=== PATIENT | male | born 1935 | race Caucasian/White ===

== ENCOUNTER 2017-12-10 20:43 | Emergency (ER) | payer MEDICARE, BC ==
[2017-12-10 20:53] VITALS: TEMP 97.1
[2017-12-10 21:06] VITALS: RESP 18
[2017-12-10 21:48] LABS: BASOPHILS % (AUTO) 1 % (0-3); EOSINOPHILS % (AUTO) 2 % (0-9); HEMATOCRIT 44 % (39-53); MEAN CORPUSCULAR HGB CONC 33.1 gm/dl (32.0-36.0); MEAN CORPUSCULAR VOLUME 91 fL (80-100); MONOCYTES % (AUTO) 12.1 % (0-12); NEUTROPHILS % (AUTO) 59.4 % (37-80)
[2017-12-10 22:01] LABS: ALBUMIN 3.2 gm/dl (3.4-5.0); ALT 43 IU/L (14-63); CALCIUM 9.2 mg/dl (8.5-10.1); GLOM FILT RATE 58 mL/min (>60); POTASSIUM 3.8 mMol/L (3.5-5.1); SODIUM 136 mMol/L (136-145)
[2017-12-10 23:15] VITALS: BP 110/66; PULSE 81; O2SAT 94
== END 2017-12-10 22:40 | disposition home or self-care (01) | DRG 204 ==
LOC: ED 20:43
DX: R06.09 Other forms of dyspnea (principal); R06.01 Orthopnea; R53.1 Weakness
CPT/HCPCS: 36415; 71045; 80053; 83880; 84484; 85025; 99283

== ENCOUNTER 2017-12-11 06:30 | Day surgery (SDC) | payer MEDICARE, BC ==
[2017-12-11] MEDS ORDERED: ACETAZOLAMIDE 250 MG PO ONE (06:38)
[2017-12-11 06:56] VITALS: O2SAT 95
[2017-12-11] MEDS: PHENYLEPHRINE HCL 10% OPHTHAL SOL ONE ×2 (07:08→07:22)
[2017-12-11] MEDS: PROPARACAINE HCL 0.5% OPHTHALMIC SOL ONE ×3 (07:08→08:06)
[2017-12-11] MEDS: KETOROLAC 0.5% OPTH 60 DROP SOL ONE ×2 (07:09→07:23)
[2017-12-11] MEDS: CYCLOPENTOLATE 1% SOL ONE ×2 (07:09→07:23)
[2017-12-11] MEDS ORDERED: FENTANYL 100MCG/2ML SOL ONE (07:35)
[2017-12-11] MEDS ORDERED: MIDAZOLAM 2 MG/2 ML SOL ONE (07:35)
[2017-12-11] MEDS ORDERED: LIDOCAINE HCL 1% MPF SOL ONE (08:01)
[2017-12-11] MEDS ORDERED: TRIAMCINOLONE ACETONIDE 10 MG/ML VIAL ONE (08:01)
[2017-12-11] MEDS ORDERED: BSS 500 ML 500 ML IR ONE (08:01)
[2017-12-11] MEDS ORDERED: POVIDONE IODINE 5% SOL ONE (08:01)
[2017-12-11] MEDS ORDERED: CEFUROXIME SODIUM/0.9% NACL/PF 10 MG/ML VIAL IO ONE (08:02)
[2017-12-11 09:09] VITALS: BP 109/92; PULSE 82; RESP 16; TEMP 97.8
== END 2017-12-11 09:01 | disposition home or self-care (01) | DRG 125 ==
LOC: SURG 06:30
PROVIDERS: ATTEND Ophthalmology
DX: H25.9 Unspecified age-related cataract (principal); E11.9 Type 2 diabetes mellitus without complications; H40.10X2 Unspecified open-angle glaucoma, moderate stage
CPT/HCPCS: 0191T; 66984; 82962; J2250; J3010; A9270-GY; C1783; J0697; J2001; J3300